=== PATIENT | female | born 1975 | race American Indian/Alaskan Native ===

== ENCOUNTER 2018-01-17 10:44 | Emergency (ER) | payer SELFPAY ==
[2018-01-17 10:57] VITALS: BP 147/98
--- NOTE | 2018-01-17 11:25 | Emergency Department Report ---
Chief Complaint: Pain General Stated Complaint: SHOULDER PAIN/SWOLLEN ANKLES Time Seen by Provider: 01/17/18 11:14 - HPI History of Present Illness: Patient is a 42-year-old Female who is complaining of 2-3 years of bilateral shoulder pain and some mild ankle swelling. He is not new complaints and not worse today than her normal period patient states she has some aching pains that are 6 out of 10 every day. She has some decreased range of motion secondary to pain. Patient denies any injury fevers chills nausea vomiting diarrhea at this time. - ROS Review of Systems: All systems reviewed and are negative - Exam Vital Signs: Vital Signs 01/17/18 10:55 Temperature 98.4 F Pulse Rate 94 H Respiratory 16 Rate Blood Pressure 147/98 O2 Sat by Pulse 98 Oximetry Physical Exam: Patient has no warmth redness or major swelling to the bilateral shoulders or ankles. She does have some decreased range of motion as she states secondary to pain. MSE screening note: Focused history and physical exam performed. Due to findings the following was ordered: ED Medical Decision Making - Medical Decision Making Patient has pain has been off of greater than 2 years. Patient referred to [facility] for primary care and Dr. Casas's orthopedic doctor. She is a nonmedical emergency at this time is opted to not take $150 co-pay. ED Disposition for MSE Clinical Impression: Chronic arthritis Disposition: Z-07 MED SCREENING EXAM-LEFT Is pt being admited?: No Does the pt Need Aspirin: No Condition: Stable Instructions: RICE Therapy (ED) Referrals: [facility] [Outside] - 3-5 Days BRAEDEN CASAS MD [Staff Physician] - 3-5 Days
== END 2018-01-17 11:38 | disposition left against medical advice (07) ==
LOC: ED 10:44
DX: M19.90 Unspecified osteoarthritis, unspecified site (principal); Z53.21 Procedure and treatment not carried out due to patient leaving prior to being seen by health care provider